=== PATIENT | female | born 1980 | race Caucasian/White ===

== ENCOUNTER 2018-12-31 16:53 | Emergency (ER) | payer OTHER ==
--- NOTE | 2018-12-31 19:33 | CT ---
EXAMINATION TYPE: CT brain stephan navas DATE OF EXAM: 12/31/2018 COMPARISON: None HISTORY: Headache x1 week. Neck pain CT DLP: 1298.5 mGycm Automated exposure control for dose reduction was used. TECHNIQUE: CT scan of the head and cervical spine are performed without contrast. FINDINGS: Ventricles and sulci appear normal. There is no mass effect nor midline shift. There is n o sign of intracranial hemorrhage. The calvarium is intact. Cervical vertebra have normal alignment. Disc spaces are fairly normal. There is mild anterior spurri ng at C5-6. Facet joints appear normal. Skull base is intact. IMPRESSION: Negative CT scan of the brain. Negative CT scan cervical spine.
[2018-12-31] MEDS ORDERED: KETOROLAC 30 MG/ML 1 ML VIAL IVP STA (19:50)
[2018-12-31] MEDS ORDERED: SODIUM CHLORIDE 0.9% 500 ML 500 ML IV STA (19:50)
[2018-12-31] MEDS ORDERED: METOCLOPRAMIDE 5 MG/ML 2 ML VIAL IVP STA (19:50)
[2018-12-31] MEDS ORDERED: diphenhydrAMINE 50 MG/ML 1 ML VIAL IVP STA (19:50)
[2018-12-31] MEDS ORDERED: SULFAMETHOX-TMP 800-160MG 1 EACH TAB PO STA (19:51)
--- NOTE | 2018-12-31 21:09 | ED ---
General Adult HPI - General Chief complaint: Headache Stated complaint: Headache for a week Time Seen by Provider: 12/31/18 17:59 Source: patient, family, RN notes reviewed, old records reviewed Mode of arrival: ambulatory Limitations: no limitations - History of Present Illness Initial comments: 38-year-old female patient past medical history of hidradenitis suppurva presents to ED with headache. Pt reports that this headache hasn't waxing and waning for approximately 9 days. Patient points that she has pain in her occipital lobe as well as in her paracervical region. Patient states that this is exacerbated by movement. Patient also reports that she has had some mild waxing and waning nausea. Patient denies any chest pain shortness breath abdo graeme pain nausea vomiting or diarrhea. Patient has a history of abscesses. Patient was that she has a very mild abscess in her right inguinal region which is actively draining. Patient denies any dysuria. Patient denies worse headache of life. Denies thunderclap onset. Denies neck stiffness. Denies any changes in vision or facial droop. Systemic: Pt denies fatigue, fever/chills, rash. Pt denies weakness, night sweats, weight loss. Neuro: Pt denies headache, visual disturbances, syncope or pre-syncope. HEENT: Pt denies ocular discharge or irritation, otalgia, rhinorrhea, pharyngitis or notable lymphadenopathy. Cardiopulmonary: Pt denies chest pain, SOB, heart palpitations, dyspnea on exertion. Abdominal/GI: Pt denies abdominal pain, n/v/d. : Pt denies dysuria, burning w/ urination, frequency/urgency. Denies new onset urinary or bowel incontinence. MSK: Pt denies myalgia, loss of strength or function in extremities. Neuro: Pt denies new onset weakness, paresthesias. - Related Data Home Medications Medication Instructions Recorded Confirmed Calcium Carbonate [Calcium] 600 mg PO DAILY 12/31/18 12/31/18 Cholecalciferol (Vitamin D3) 2,000 unit PO DAILY 12/31/18 12/31/18 [Vitamin D3] Cyclobenzaprine [Flexeril] 10 mg PO HS 12/31/18 12/31/18 Gabapentin [Neurontin] 300 mg PO TID 12/31/18 12/31/18 Sertraline HCl [Zoloft] 25 mg PO HS 12/31/18 12/31/18 Sertraline [Zoloft] 50 mg PO HS 12/31/18 12/31/18 Previous Rx's Medication Instructions Recorded Sulfamethox-Tmp 800-160Mg [Bactrim 1 tab PO Q12HR #20 tab 12/31/18 DS 800-160 mg] Allergies Allergy/AdvReac Type Severity Reaction Status Date / Time cephalexin monohydrate AdvReac Rash/Hives Verified 12/31/18 18:00 [From Keflex] Review of Systems ROS Statement: Those systems with pertinent positive or pertinent negative responses have been documented in the HPI. ROS Other: All systems not noted in ROS Statement are negative. Past Medical History Past Medical History: No Reported History Additional Past Medical History / Comment(s): Pt states abcess in R groin/leg area History of Any Multi-Drug Resistant Organisms: None Reported Past Surgical History: No Surgical Hx Reported Additional Past Surgical History / Comment(s): Pt states she has had several abcesses removed Past Anesthesia/Blood Transfusion Reactions: No Reported Reaction Past Psychological History: No Psychological Hx Reported Smoking Status: Never smoker Past Alcohol Use History: None Reported Past Drug Use History: None Reported - Past Family History Mother Family Medical History: No Reported History General Exam - General Exam Comments Initial Comments: Constitutional: NAD, AOX3, Pt has pleasant affect. HEENT: NC/AT, trachea midline, neck supple, no lymphadenopathy. Posterior pharynx non erythematous, without exudates. External ears appear normal, without discharge. Mucous membranes moist. Eyes PERRLA, EOM intact. There is no scleral icterus. No pallor noted. Cardiopulmonary: RRR, no murmurs, rubs or gallops, no JVD noted. Lungs CTAB in anterior and posterior cook. No peripheral edema. Abdominal exam: Abdomen soft and non-distended. Abdomen non-tender to palpation in all 4 quadrants. Bowel sounds active in LLQ. No hepatosplenomegaly. No ecchymosis Neuro: CN II-XII intact. No nuchal rigidity. No raccon eyes, no yusuf sign, no hemotympanum. No cervical spinal tenderness. NIH 0. MSK: No posterior calf tenderness bilaterally, homans sign negative bilaterally. Posterior tibialis and radial pulse +2 bilaterally. Sensation intact in upper and lower extremities. Full active ROM in upper and lower extremities, 5/5 stregnth. Derm: small abscess noted in right inguinal region. 1x1cm actively draining, no cellulitis. Limitations: no limitations Course Vital Signs 12/31/18 17:15 Temperature 100.2 F H Pulse Rate 90 Respiratory 19 Rate Blood Pressure 142/93 O2 Sat by Pulse 97 Oximetry Medical Decision Making - Medical Decision Making 38-year-old female patient past medical history of hidradenitis suppurva presents to ED with headache. Pt reports that this headache hasn't waxing and waning for approximately 9 days. Patient points that she has pain in her occipital lobe as well as in her paracervical region. Patient states that this is exacerbated by movement. Patient also reports that she has had some mild waxing and waning nausea. Patient denies any chest pain shortness breath abdominal pain nausea vomiting or diarrhea. Patient has a history of abscesses. Patient was that she has a very mild abscess in her right inguinal region which is actively draining. Patient denies any dysuria. Patient denies worse h eadache of life. Denies thunderclap onset. Denies neck stiffness. Denies any changes in vision or facial droop. Patient also displayed low-grade fever. Physical exam displayed: CN II-XII intact. No nuchal rigidity. No raccon eyes, no yusuf sign, no hemotympanum. No cervical spinal tenderness. NIH 0. small abscess noted in right inguinal region. 1x1cm actively draining, no cellulitis. Laboratory investigations revealed negative urine hCG. CT of brain and cervical spine displayed no acute process. Patient improved with Toradol, Benadryl, Reglan. Patient administered Bactrim for small abscess. Patient discharged with Bactrim for abscess. Patient follow-up with both primary care provider as well as neurology consult if headaches continue. Patient will return to ER if condition worsens in any way. Case discussed with Dr. Quintero. - Lab Data Lab Results 12/31/18 Range/Units 18:30 Urine HCG, Qual Not Detected (Not Detectd) Disposition Clinical Impression: Acute headache, Abscess Disposition: HOME SELF-CARE Condition: Stable Instructions (If sedation given, give patient instructions): Acute Headache (ED), Abscess (ED) Additional Instructions: Patient to adhere to previously discussed treatment plan and will take medication(s) as directed. Patient to follow up with PCP in 1-2 days. Patient to return to ED if symptoms do not improve. Take medications rectum. Follow-up with primary care provider tomorrow. Follow-up with neurology consult 1-2 days. Return to ER if condition worsens in anyway. Prescriptions: Sulfamethox-Tmp 800-160Mg [Bactrim DS 800-160 mg] 1 tab PO Q12HR #20 tab Is patient prescribed a controlled substance at d/c from ED?: No Referrals: Hussein Schaefer MD [Primary Care Provider] - 1-2 days Dina Bryant MD [Medical Doctor] - 1-2 days
[2018-12-31 21:17] VITALS: RESP 16
[2018-12-31 21:34] VITALS: BP 129/86; PULSE 72; TEMP 99
== END 2018-12-31 21:30 | disposition home or self-care (01) ==
LOC: EC 16:53
DX: L02.214 Cutaneous abscess of groin (principal); R51 Headache; R11.0 Nausea; M54.2 Cervicalgia; R50.9 Fever, unspecified; Z88.1 Allergy status to other antibiotic agents; Z79.899 Other long term (current) drug therapy; Z87.2 Personal history of diseases of the skin and subcutaneous tissue; Z98.890 Other specified postprocedural states
CPT/HCPCS: 99284; 96374; 96375 ×2; 81025; 72125; 70450; J1200; J2765; J1885

== ENCOUNTER → 2019-02-06 | Outpatient (CLI) | payer OTHER ==
--- NOTE | 2019-02-11 08:24 | MM ---
Reason for exam: screening (asymptomatic). Last mammogram was performed 4 years and 6 months ago. History: Family history of breast cancer in maternal aunt. Physical Findings: A clinical breast exam by your physician is recommended on an annual basis and results should be correlated with mammographic findings. MG Screening Mammo w CAD Bilateral CC and MLO view(s) were taken. Prior study comparison: August 05, 2014, mammogram, performed at [facility]. There is no discrete abnormality. No significant changes when compared with prior studies. ASSESSMENT: Negative, BI-RAD 1 RECOMMENDATION: Routine screening mammogram of both breasts in 1 year.
== END | disposition home or self-care (01) ==
LOC: RADMAMWWP 14:41
PROVIDERS: ATTEND Family Medicine
DX: Z12.31 Encounter for screening mammogram for malignant neoplasm of breast (principal)
CPT/HCPCS: 77067

== ENCOUNTER → 2020-02-11 | Day surgery (SDC) | payer OTHER ==
[2020-02-07 10:10] VITALS: BMI 32.8
[~2020-02-11] MED LIST: LACTATED RINGERS 1,000 ML IV SCH; LIDOCAINE 1% (10MG/ML) FOR IV START INTRADERMA ONE; LIDOCAINE 1% INJ 10MG/ML (20 ML MDV) ONE; PROPOFOL 10 MG/ML 20 ML VIAL IV ONE
[2020-02-11 07:29] VITALS: TEMP 97.3
--- NOTE | 2020-02-11 08:58 | P.PCN ---
Date of Procedure: 02/11/20 Description of Procedure: Brief history: Patient is a pleasant 39-year-old female presenting for outpatient esophagogastroduodenoscopy colonoscopy for evaluation of celiac screening positive for Michael in the body, change of bowel habits, abdominal pain. She said abdominal pain in the upper abdomen with associated bloating, intermittent nausea, regurgitation and change in bowel habits. Procedure performed: Esophagogastroduodenoscopy With biopsies Colonoscopy With biopsy Estimated blood loss: Minimal. Preoperative diagnosis: Celiac screening, positive gliadin antibody, change in bowel habits, abdominal pain Anesthesia: MAC Procedure: After informed consent was obtained from the patient was brought into the endoscopy unit and IV sedation was administered by anesthesia under continuous monitoring. Initially upper endoscopy was done. The Olympus GF 190 video endoscope was inserted into the mouth and esophagus intubated without any difficulty and was gradually advanced into the stomach and duodenum and carefully examined. The bulb and second part of the duodenum appeared normal, With flexible sigmoidoscopy. The scope was then withdrawn into the stomach adequately insufflated with air and upon careful examination the antrum and body, cardia and fundus appeared normal, Except for some mild scattered erythema in the antrum and body suggestive of mild gastritis with biopsies taken. The scope was then withdrawn into the esophagus. The GE junction was l ocated at 37 cm to the incisors, Biopsies taken. It appeared regular with no erythema erosions or ulcerations. Rest of the esophagus appeared normal. Patient tolerated the procedure well. At this time the patient continued to remain sedation. Initial digital rectal examination was normal. Olympus CF 190 video colonoscope was then inserted into the rectum and gradually advanced to the cecum without any difficulty. Careful examination was performed as the scope was gradually being withdrawn. The prep was excellent. The cecum, ascending colon, transverse colon, descending colon, sigmoid colon and rectum appeared normal, with biopsies of the right and left colon in the setting of altered bowel function. The terminal ileum was intubated and appeared normal with biopsies taken. A few scattered diverticula noted throughout the colon. Retroflexion was performed in the rectum and no lesions were noted. Patient tolerated the procedure well. Impression: 1. Mild gastritis antrum and body biopsied. Biopsies of the duodenum and GE junction. 2. Normal-appearing colon from rectum to cecum with normal-appearing terminal ileum and random biopsies taken of the right colon, left colon and terminal ileum. Mild diverticulosis. Recommendations: Findings of this examination were discussed with the patien. Okay to resume diet. Okay to his medications. Await pathology from biopsies. Follow up in GI clinic in the next 2-3 weeks for results of her biopsies. Continue current medical management of symptoms.
[2020-02-11 09:04] VITALS: RESP 16
[2020-02-11 09:24] VITALS: BP 101/69; PULSE 52
== END ==
LOC: ORWHC2ENDO 07:05
PROVIDERS: ATTEND Internal Medicine
DX: R19.4 Change in bowel habit (principal); K29.50 Unspecified chronic gastritis without bleeding; K57.30 Diverticulosis of large intestine without perforation or abscess without bleeding; G57.93 Unspecified mononeuropathy of bilateral lower limbs; G62.9 Polyneuropathy, unspecified; M06.9 Rheumatoid arthritis, unspecified; Z87.891 Personal history of nicotine dependence; Z88.1 Allergy status to other antibiotic agents; Z79.899 Other long term (current) drug therapy
CPT/HCPCS: 81025; 88305; 45380; 43239; J2001; J2704

== ENCOUNTER → 2020-04-16 | Outpatient (CLI) | payer OTHER ==
--- NOTE | 2020-04-16 12:53 | NM ---
EXAMINATION TYPE: NM gastric emptying static DATE OF EXAM: 04/16/2020 COMPARISON: NONE HISTORY: Nausea Following administration of 1.4 mCi Tc 99m Sulfur Colloid with 4 oz scrambled liquid eggs, 2 slices o f toast with butter and jelly, & 20 oz ice water, projection images of the abdomen were obtained 10 m inutes post ingestion. Patient Emptying Values 1 Hour 7 % 2 Hours 55 % 3 Hours 95 % 4 Hours 97 % Gastroesophageal reflux: None IMPRESSION: Gastric emptying: Normal Gastroesophageal reflux: None Gastric emptying normal percentage values: 30 minutes: <70% of retention (> 30% emptying) suggests abnormally fast emptying. 60 minutes: <90% retention (>10% emptying) is normal; less than 30% retention (>70% emptying) suggest s abnormally rapid emptying. 90 minutes: <65% retention (> 35% emptying) is normal. 120 minutes: <60% retention (> 40% emptying) is normal. 180 minutes: <30% retention (> 70% emptying) is normal. Gastric emptying T-1/2: Solid: The normal range is 60-105 minutes Liquid only: Normal range is 10-45 minutes. Liquid only-children: At 60 minutes, normal range is 44-58 % . Liquid only-infants: At 60 minutes, normal range is 32-64 %. Additional references: Gastric Emptying Scintigraphy [email or web address]://[email or web address]
== END | disposition home or self-care (01) ==
LOC: RADNMMAIN 06:57
PROVIDERS: ATTEND Internal Medicine Gastroenterology
DX: R11.0 Nausea (principal)
CPT/HCPCS: 78264; A9541

== ENCOUNTER → 2020-04-23 | Outpatient (CLI) | payer OTHER ==
--- NOTE | 2020-04-24 13:56 | MM ---
Reason for exam: screening (asymptomatic). Last mammogram was performed 1 year and 2 months ago. History: Family history of breast cancer in maternal aunt. Physical Findings: A clinical breast exam by your physician is recommended on an annual basis and results should be correlated with mammographic findings. MG Screening Mammo w CAD Bilateral CC and MLO view(s) were taken. Prior study comparison: February 06, 2019, bilateral MG screening mammo w CAD. There are scattered fibroglandular densities. No significant changes when compared with prior studies. ASSESSMENT: Benign, BI-RAD 2 RECOMMENDATION: Routine screening mammogram of both breasts in 1 year.
== END | disposition home or self-care (01) ==
LOC: RADMAMWWP 16:31
PROVIDERS: ATTEND Family Medicine
DX: Z12.31 Encounter for screening mammogram for malignant neoplasm of breast (principal)
CPT/HCPCS: 77067

== ENCOUNTER 2021-09-03 13:05 | Emergency (ER) | payer OTHER ==
[2021-09-03 13:14] VITALS: BP 144/92; PULSE 113; RESP 18; TEMP 98.6
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
--- NOTE | 2021-09-03 14:25 | XR ---
Nasal bones HISTORY: Pain without trauma. COMPARISON: None. TECHNIQUE: 3 views nasal bones were obtained FINDINGS: Nasal bones are intact and there is no evidence of fracture.
[2021-09-03] MEDS ORDERED: ACETAMINOPHEN TAB 500 MG TAB PO STA (14:30)
== END 2021-09-03 14:47 | disposition home or self-care (01) ==
LOC: EC 13:05
DX: M79.642 Pain in left hand (principal); F32.A Depression, unspecified; Z88.1 Allergy status to other antibiotic agents
CPT/HCPCS: 70160; 99283

== ENCOUNTER → 2023-05-03 | Outpatient (CLI) | payer OTHER, BC ==
--- NOTE | 2023-05-04 20:43 | MM ---
Reason for Exam: Screening (asymptomatic). Last mammogram was performed 3 year(s) and 1 month(s) ago. Patient History: Menarche at age 12. First Full-Term at age 24. Perimenopausal. Currently using Estrogen. Maternal aunt had breast cancer. Risk Values: Lakisha 5 year model risk: 0.8%. NCI Lifetime model risk: 9.8%. Prior Study Comparison: 08/05/2014 Screening Mammogram, [facility]. 02/06/2019 Bilateral Screening Mammogram, [facility]. 04/23/2020 Bilateral Screening Mammogram, [facility]. Tissue Density: There are scattered fibroglandular densities. Findings: Analyzed By CAD. There is no suspicious group of microcalcifications or new suspicious mass in either breast. Overall Assessment: Negative, BI-RAD 1 Management: Screening Mammogram of both breasts in 1 year. . Patient should continue monthly self-breast exams. A clinical breast exam by your physician is recommended on an annual basis. This exam should not preclude additional follow-up of suspicious palpable abnormalities. Note on Lakisha scores and lifetime risk: 1. A Lakisha score greater than 3% is considered moderate risk. If this is the case, consider specialist referral to assess eligibility for a risk reducing agent. 2. If overall lifetime risk for the development of breast cancer is 20% or higher, the patient may qualify for future screening with alternating mammogram and breast MRI. Electronically signed and approved by: Toni Adrian M.D. Radiologist
== END | disposition home or self-care (01) ==
LOC: RADMAMWWP 14:35
PROVIDERS: ATTEND Family Medicine
DX: Z12.31 Encounter for screening mammogram for malignant neoplasm of breast (principal); Z80.3 Family history of malignant neoplasm of breast
CPT/HCPCS: 77067

== ENCOUNTER → 2024-06-20 | Outpatient (CLI) | payer BC ==
--- NOTE | 2024-06-21 14:48 | MM ---
Reason for Exam: Screening (asymptomatic). Last mammogram was performed 1 year(s) and 1 month(s) ago. Patient History: Menarche at age 12. First Full-Term at age 24. Perimenopausal. Currently using Estrogen. Maternal aunt had breast cancer. Risk Values: Lakisha 5 year model risk: 0.8%. NCI Lifetime model risk: 9.7%. Prior Study Comparison: 02/06/2019 Bilateral Screening Mammogram, [facility]. 04/23/2020 Bilateral Screening Mammogram, [facility]. 05/03/2023 Bilateral MG screening mammo w CAD, [facility]. Tissue Density: The breasts are almost entirely fatty. Findings: Analyzed By CAD. Right breast: There is no suspicious group of microcalcifications or new suspicious mass. Left breast: There is no suspicious group of microcalcifications or new suspicious mass. Overall Assessment: Negative, BI-RAD 1 Management: Screening Mammogram of both breasts in [address] [facility] will attempt to contact patient to return for supplemental views and ultrasound if indicated. Patient should continue monthly self-breast exams. A clinical breast exam by your physician is recommended on an annual basis. This exam should not preclude additional follow-up of suspicious palpable abnormalities. Note on Lakisha scores and lifetime risk: 1. A Lakisha score greater than 3% is considered moderate risk. If this is the case, consider specialist referral to assess eligibility for a risk reducing agent. 2. If overall lifetime risk for the development of breast cancer is 20% or higher, the patient may qualify for future screening with alternating mammogram and breast MRI. [facility], , 06/21/2024 2:45 PM. Electronically signed and approved by: Karl Lee DO
== END | disposition home or self-care (01) ==
LOC: RADMAMWWP 08:34
PROVIDERS: ATTEND Family Medicine
DX: Z12.31 Encounter for screening mammogram for malignant neoplasm of breast (principal); Z80.3 Family history of malignant neoplasm of breast; R92.313 Mammographic fatty tissue density, bilateral breasts
CPT/HCPCS: 77067